=== PATIENT | female | born 2005 | race Caucasian/White ===

== ENCOUNTER 2023-08-24 06:11 | Day surgery (SDC) | payer OTHER ==
[~2023-08-24] VITALS: Ht 165.1 cm; Wt 64.5 kg
[2023-08-24] MEDS ORDERED: propofoL 20 ML IV ONE (07:03)
[2023-08-24] MEDS ORDERED: Lactated Ringer's 1,000 ML IV ONE ×3 (07:13→09:13)
[2023-08-24] MEDS ORDERED: Tranexamic Acid 100 ML IV ONE (07:14)
[2023-08-24] MEDS ORDERED: CeFAZolin Sodium 2,000 MG VIAL ONE (07:21)
[2023-08-24] MEDS ORDERED: NS 50 ML IV ONE (07:21)
[2023-08-24] MEDS ORDERED: Dexamethasone Sod Phos 10 MG/ML 1ML VIAL ONE ×3 (07:26→12:07)
[2023-08-24] MEDS ORDERED: EPINEPhrine HCl 1 MG/ML 1ML Amp ONE (07:26)
[2023-08-24] MEDS ORDERED: Bupivacaine HCl 0.25% 30 ML Injection ONE (07:27)
[2023-08-24] MEDS ORDERED: Midazolam HCl 1MG / ML 2ML Vial ONE (07:27)
[2023-08-24] MEDS ORDERED: FentaNYL Citrate 50 MCG/ML 2 ML Injection ONE ×5 (07:49→14:30)
[2023-08-24] MEDS ORDERED: EPINEPhrine HCl 1 MG/ML 1ML Amp XX ONE (08:10)
[2023-08-24] MEDS ORDERED: Lidocaine 1%-Epineph 1:100000 20 ML MDV XX ONE (08:10)
--- NOTE | 2023-08-24 08:22 | NUR ---
08/24/23 0822 Samson Fung 1MG OF EPI ADDED TO EACH OF THE FIRST 3 BAGS OF LR USED FOR JOINT IRRIGATION DURING CASE.
[2023-08-24] MEDS ORDERED: Glycopyrrolate 0.2 MG/ML 5ML VIAL ONE (08:27)
--- NOTE | 2023-08-24 08:30 | NUR ---
08/24/23 0830 Torie Granados PT SCHEDULED FOR SURGERY--THE LEFT ACL RECONSTRUCTION W/ QUAD AUTOGRAFT. PT A&O x4, PLEASANT AND COOPERATIVE WITH CARE PROVIDED. PT EDUCATION PROVIDED BY DR. SMITH REGARDING THE OPTION FOR PT TO HAVE A NERVE BLOCK. PT WAS ABLE TO ASK QUESTIONS AND ADDRESS CONCERNS. PT AGREED TO GO FORWARD WITH NERVE BLOCK. DR. SMITH PERFORMED A NERVE BLOCK AT 0741. PT VSS, OXYGEN SATURATION WNL, PT ON RA. PT TOLERATED THE BLOCK WELL. PT'S SISTER AT BEDSIDE OBSERVING THE BLOCK. STOP TIME AT 0743.
[2023-08-24] MEDS ORDERED: HYDROmorphone HCl/Pf 1MG SYR ONE ×4 (09:27→11:56)
[2023-08-24] MEDS ORDERED: Metoclopramide HCl 5MG / ML 2ML Vial ONE (09:30)
[2023-08-24] MEDS ORDERED: Ondansetron HCl 2 MG / ML 2ML Vial ONE ×2 (09:30→13:03)
--- NOTE | 2023-08-24 11:02 | NUR ---
08/24/23 1102 GUY MCKEON PAIN DESCRIBED 11/22. PT CRYING. WILL GIVE FENTANYL
[2023-08-24] MEDS ORDERED: OxyCODONE HCL 5 MG TAB ONE (11:34)
--- NOTE | 2023-08-24 11:43 | NUR ---
08/24/23 1143 GUY MCKEON IN AT BEDSIDE. PAIN DESCRIBED 9.5/10. FAMILY ENCOURAGING HER TO EAT SO I CAN GIVE HER A PO PAIN MED.
[2023-08-24] MEDS ORDERED: Bupivacaine HCl 0.25% 50 ML Vial ONE (12:07)
[2023-08-24] MEDS ORDERED: Ketorolac Tromethamine 30mg Vial ONE ×2 (12:15→17:23)
[2023-08-24] MEDS ORDERED: Prochlorperazine Edisylate 10 mg Vial IV PRN (14:20)
[2023-08-24] MEDS ORDERED: Acetaminophen 500 MG Tab ONE (17:23)
== END 2023-08-24 18:01 | disposition home or self-care (01) ==
LOC: ORSCSDS 06:11
PROVIDERS: Orthopaedic Surgery Sports Medicine
PROC: 0MRP4JZ Replacement of Left Knee Bursa and Ligament with Synthetic Substitute, Percutaneous Endoscopic Approach (ICD-10-PCS; principal; 2023-08-24 07:30)
DX: S83.512A Sprain of anterior cruciate ligament of left knee, initial encounter (principal); S83.282A Other tear of lateral meniscus, current injury, left knee, initial encounter
CPT/HCPCS: A9270; C1713; C1776; C1889; J0171; J0690; J0780; J1100; J1170; J1885; J2250; J2405; J2704; J2765; J3010; J7120

== ENCOUNTER 2023-08-27 00:53 | Emergency (ER) | payer OTHER ==
[~2023-08-27] VITALS: Ht 165.1 cm; Wt 66.2 kg
[2023-08-27] MEDS ORDERED: OXYC5 PO (03:33)
[2023-08-27] MEDS ORDERED: Ketorolac Tromethamine 30mg Vial IV ONE (04:30)
[2023-08-27] MEDS ORDERED: OxyCODONE HCL 5 MG TAB PO ONE (04:30)
[2023-08-27] MEDS ORDERED: OXYC30ER PO (04:45)
== END 2023-08-27 05:23 | disposition home or self-care (01) ==
LOC: ER 00:53
DX: G89.18 Other acute postprocedural pain (principal); M25.562 Pain in left knee
CPT/HCPCS: 96374; 99283-25; A9270; J1885